=== PATIENT | female | born 1975 | race Caucasian/White ===

== ENCOUNTER 2018-08-16 17:51 | Emergency (ER) | payer OTHER ==
[~2018-08-16] VITALS: Ht 170.2 cm; Wt 83.9 kg
[~2018-08-16 17:51] MED LIST: ALPRAZOLAM 0.50.5 M1 PO; NOHOMEMEDICATIONS; ZOLOFT 50 MG TA50 M1 PO
[2018-08-16 18:17] LABS: ABSOLUTE BASOPHILS 0.1 thou/uL (0.0-0.2); ABSOLUTE LYMPHOCYTES 2.7 thou/uL (0.8-5.3); ABSOLUTE MONOCYTES 0.9 thou/uL (0.0-1.2); ABSOLUTE NEUTROPHILS 6.6 thou/uL (1.6-8.1); BASOPHILS 0.5 %; HEMATOCRIT 43.1 % (37.0-47.0); HEMOGLOBIN 14.6 gm/dL (12.0-15.0); LYMPHOCYTES 26.7 %; MCH 30.7 pg (26.0-34.0); MCV 90.5 fL (80.0-100.0); MONOCYTES 8.6 %; MPV 8.9 fl. (7.2-11.1); NUCLEATED RBCS 0 /100WBC; PLATELET COUNT* 262 thou/uL (150-400); POLYS 64.2 %; RBC 4.77 mil/uL (4.20-5.00); RDW-CV 13.9 % (10.5-14.5); WBC 10.2 thou/uL (4.0-11.0)
[2018-08-16 18:23] LABS: PROTIME 9.9 Seconds (9.20-11.50)
[2018-08-16 18:25] LABS: ANION GAP 12 mmol/L (7-16); BUN 13 mg/dL (7-18); CALCIUM 9.6 mg/dL (8.5-10.1); CHLORIDE 102 mmol/L (98-107); CO2 25 mmol/L (21-32); CREATININE 0.9 mg/dL (0.6-1.3); GLUCOSE 92 mg/dL (70-99); POTASSIUM 3.9 mmol/L (3.5-5.1); SODIUM 139 mmol/L (136-145)
[2018-08-16 18:41] LABS: ALBUMIN 4.1 g/dL (3.4-5.0); ALKALINE PHOSPHATASE 58 U/L (46-116); NT-PRO BRAIN NAT PEPTIDE 31 pg/mL (<300); SGOT 15 U/L (15-37); SGPT 24 U/L (30-65); TOTAL BILIRUBIN 0.4 mg/dL (<0.1-1.0); TROPONIN-I LEVEL <0.06 ng/mL (<0.06)
[2018-08-16 18:53] VITALS: BP 130/78
--- NOTE | 2018-08-18 12:26 | EKG ---
[place] [address] ELECTROCARDIOGRAM REPORT Name: AR CARPIO Room: [facility]#: [id number] Admission: 08/16/18 Attend Phys: Discharge: 08/16/18 Date of : 79 Report #: [id number] THIS REPORT FOR: //name// [facility] ED Test Date: 2018-08-16 Test Time: 17:56:00 Pat Name: AR CARPIO Department: Room: Gender: F Recreation Program Specialist: Zeus ALVAREZ : 1975 Requested By: Andrea Panda Order Number: [id number] MD: Chris William Measurements Intervals [place] Rate: 180 P: 0 SD: 43 QRS: 55 QRSD: 85 T: 63 QT: 273 QTc: 473 Interpretive Statements Supraventricular tachycardia ST depression, probably rate related Compared to ECG 03/13/2014 08:15:39 ST (T wave) deviation now present Sinus rhythm no longer present Sinus arrhythmia no longer present Electronically Signed On 08-18-2018 12:26:38 DUMP GRADER by Chris William [email or web address] <ELECTRONICALLY SIGNED> By: Chris William MD, FACC 08/18/18 1226 1756 1756 Chris William MD, [facility] /EPI
--- NOTE | 2018-08-18 12:26 | EKG ---
[place] [address] ELECTROCARDIOGRAM REPORT Name: AR CARPIO Room: [facility]#: [id number] Admission: 08/16/18 Attend Phys: Discharge: 08/16/18 Date of : 79 Report #: [id number] THIS REPORT FOR: //name// [facility] ED Test Date: 2018-08-16 Test Time: 18:37:45 Pat Name: AR CARPIO Department: Room: Gender: F Malt Loader: Zeus ALVAREZ : 1975 Requested By: Andrea Panda Order Number: [id number] MD: Chris William Measurements Intervals [place] Rate: 78 P: 37 ND: 151 QRS: 19 QRSD: 89 T: 29 QT: 350 QTc: 399 Interpretive Statements Sinus rhythm Compared to ECG 03/13/2014 08:15:39 Sinus arrhythmia no longer present Electronically Signed On 08-18-2018 12:26:49 CRUSHED STONE GRADER by Chris William [email or web address] <ELECTRONICALLY SIGNED> By: Chris William MD, [facility] 08/18/18 1226 1837 183 Chris William MD, FACC /EPI
== END 2018-08-16 18:55 | disposition home or self-care (01) ==
LOC: M.ERS 17:51
PROVIDERS: Emergency Medicine
DX: I47.1 Supraventricular tachycardia (principal); Z88.5 Allergy status to narcotic agent; Z88.8 Allergy status to other drugs, medicaments and biological substances